=== PATIENT | male | born 1985 | race Caucasian/White ===

== ENCOUNTER 2018-01-28 01:32 | Emergency (ER) | payer OTHER ==
[~2018-01-28] VITALS: Ht 185.4 cm; Wt 99.8 kg
[~2018-01-28 01:32] MED LIST: NOHOMEMEDICATIONS
[2018-01-28 02:03] LABS: ABSOLUTE EOSINOPHILS 0.3 thou/uL (0.0-0.7); ABSOLUTE LYMPHOCYTES 2.1 thou/uL (0.8-5.3); ABSOLUTE MONOCYTES 0.5 thou/uL (0.0-1.2); ABSOLUTE NEUTROPHILS 4.7 thou/uL (1.6-8.1); BASOPHILS 0.6 %; EOSINOPHILS 3.8 %; HEMOGLOBIN 14.7 gm/dL (14.0-18.0); LYMPHOCYTES 27.9 %; MCH 31.2 pg (26.0-34.0); MCHC 33.4 g/dL (28.0-37.0); MCV 93.2 fL (80.0-100.0); MPV 8.5 fl. (7.2-11.1); NUCLEATED RBCS 0 /100WBC; PLATELET COUNT* 221 thou/uL (150-400); POLYS 60.7 %; RBC 4.72 mil/uL (4.50-6.00); RDW-CV 13.1 % (10.5-14.5); WBC 7.7 thou/uL (4.0-11.0)
[2018-01-28 02:11] LABS: CALCIUM 8.7 mg/dL (8.5-10.1); POTASSIUM 3.7 mmol/L (3.5-5.1)
[2018-01-28 02:16] LABS: ALBUMIN 3.8 g/dL (3.4-5.0); TOTAL BILIRUBIN 0.1 mg/dL (<0.1-1.0)
[2018-01-28 02:27] LABS: ALCOHOL 131 mg/dL (<10); SALICYLATE < 2.8 mg/dL (2.8-20.0)
[2018-01-28 02:34] LABS: ACETAMINOPHEN < 2 ug/mL (10-30)
[2018-01-28 08:46] LABS: URINE BILIRUBIN NEGATIVE (Negative); URINE BLOOD NEGATIVE (Negative); URINE CLARITY CLEAR; URINE COLOR YELLOW; URINE GLUCOSE-RANDOM NEGATIVE (Negative); URINE KETONES NEGATIVE (Negative); URINE LEUKOCYTES-REFLEX NEGATIVE (Negative); URINE NITRITE-REFLEX NEGATIVE (Negative); URINE PROTEIN NEGATIVE (Negative); URINE SPECIFIC GRAVITY 1.025 (1.005-1.030); URINE UROBILINOGEN 0.2 E.U./dl (0.2-1.0)
[2018-01-28 09:00] LABS: AMP/METHAMP POSITIVE (Negative); BARBITURATES Negative (Negative); BENZODIAZEPINES POSITIVE (Negative); COCAINE Negative (Negative); METHADONE Negative (Negative); OPIATES Negative (Negative); PCP Negative (Negative); THC Negative (Negative)
[2018-01-28 09:35] VITALS: BP 120/71
== END 2018-01-28 09:35 | disposition home or self-care (01) ==
LOC: M.ERS 01:32
PROVIDERS: Family Medicine
DX: R41.82 Altered mental status, unspecified (principal); F29 Unspecified psychosis not due to a substance or known physiological condition; F10.129 Alcohol abuse with intoxication, unspecified; Y90.6 Blood alcohol level of 120-199 mg/100 ml; F19.10 Other psychoactive substance abuse, uncomplicated; F11.90 Opioid use, unspecified, uncomplicated; F31.9 Bipolar disorder, unspecified; F20.9 Schizophrenia, unspecified

== ENCOUNTER 2018-02-24 18:08 | Emergency (ER) | payer OTHER ==
[~2018-02-24] VITALS: Ht 185.4 cm; Wt 98.9 kg
[2018-02-24] MEDS ORDERED: [UNRECOGNIZED DRUG - REMARK] (18:18)
[2018-02-24] MEDS ORDERED: [UNRECOGNIZED DRUG - OTHER] (18:18)
[2018-02-24] MEDS ORDERED: KEFLEX500 M1 PO (18:25)
[2018-02-24 19:04] VITALS: BP 129/72
== END 2018-02-24 19:04 | disposition home or self-care (01) ==
LOC: M.ERS 18:08
DX: S61.213A Laceration without foreign body of left middle finger without damage to nail, initial encounter (principal); F31.9 Bipolar disorder, unspecified; F20.9 Schizophrenia, unspecified; W26.0XXA Contact with knife, initial encounter; Y93.89 Activity, other specified; Y92.89 Other specified places as the place of occurrence of the external cause; Y99.8 Other external cause status

== ENCOUNTER 2019-03-23 15:26 | Emergency (ER) | payer OTHER ==
[~2019-03-23] VITALS: Ht 185.4 cm; Wt 95.3 kg
[~2019-03-23 15:26] MED LIST changes: +KEFLEX500 M1 PO; +[UNRECOGNIZED DRUG - OTHER]; +[UNRECOGNIZED DRUG - REMARK]
[2019-03-23] MEDS ORDERED: STROMECTOL3 MG PO (16:23)
[2019-03-23 16:37] VITALS: BP 125/97
== END 2019-03-23 16:38 | disposition home or self-care (01) ==
LOC: M.ERS 15:26
DX: B86 Scabies (principal)